=== PATIENT | female | born 1995 | race Caucasian/White ===

== ENCOUNTER 2017-07-26 18:01 | Emergency (ER) | payer OTHER, SELFPAY ==
[2017-07-26 18:18] LABS: Glucose, Urine (Dipstick) Negative (Negative); Ketone, Urine Trace mg/dL (Negative)
[2017-07-26 18:20] LABS: Hyaline Casts/LPF 0-3 HYALINE CAST LPF (0-3 Hyaline); Squamous Epithelial 0-3 HPF (0-3)
[2017-07-26 18:22] LABS: Nitrite Unable to Interpret (Negative)
[2017-07-26 18:23] LABS: Bilirubin Unable to Interpret (Negative); Blood, Urine Moderate (Negative)
[2017-07-26 18:26] LABS: Protein, Urine (Dipstick) 30 mg/dL (Neg-Trace)
[2017-07-26 18:28] LABS: Bacteria/HPF 2+ HPF (None Seen); RBC/HPF 21-50 HPF (0-3); Yeast-All Forms None Seen HPF (None Seen)
== END 2017-07-26 19:10 | disposition home or self-care (01) ==
LOC: ERS 18:01
DX: N39.0 Urinary tract infection, site not specified (principal); J45.909 Unspecified asthma, uncomplicated; F32.9 Major depressive disorder, single episode, unspecified; F41.9 Anxiety disorder, unspecified
CPT/HCPCS: 81003; 81015; 81025; 87077; 87086; 87186; 99283

== ENCOUNTER 2017-08-01 12:43 | Emergency (ER) | payer OTHER | END 2017-08-01 13:38 | disposition home or self-care (01) | LOC: ERS 12:43 | DX: N39.0 Urinary tract infection, site not specified (principal); J45.909 Unspecified asthma, uncomplicated; F32.9 Major depressive disorder, single episode, unspecified; F41.9 Anxiety disorder, unspecified; Z79.899 Other long term (current) drug therapy | CPT/HCPCS: 99283 ==

== ENCOUNTER 2017-08-20 10:03 | Emergency (ER) | payer OTHER ==
[2017-08-20 10:39] LABS: #Eosinphils 0.1 thou/uL (0.0-0.7); #Lymphocytes 2.1 thou/uL (1.20-3.40); #Monocytes 0.5 thou/uL (0.11-0.59); #Neutrophils 5.7 thou/uL (1.40-6.50); %Basophils 0.3 % (0.0-1.0); %Eosinophils 1.3 % (0.0-10.0); %Monocytes 5.4 % (0.0-10.0); Hematocrit 40.7 % (36.0-47.0); Mean Platelet Volume 8.4 fL (7.4-10.4); Red Blood Cell (RBC) Count 4.33 mill/uL (4.20-5.40); White Blood Cell (WBC) Count 8.4 thou/uL (4.8-10.8)
[2017-08-20 10:43] LABS: Bilirubin Negative (Negative); Blood, Urine Large (Negative); Glucose, Urine (Dipstick) Negative (Negative); Ketone, Urine Negative (Negative); Nitrite Negative (Negative); Protein, Urine (Dipstick) > or equal to 300 mg/dL (Neg-Trace); Urobilinogen 0.2 mg/dL (0.2-1.0)
[2017-08-20 10:48] LABS: RBC/HPF GREATER THAN 50-TNTC HPF (0-3)
[2017-08-20 10:56] LABS: Bacteria/HPF 3+ HPF (None Seen); Hyaline Casts/LPF NONE SEEN LPF (0-3 Hyaline); Renal Epithelial 0-3 HPF (0-3); Squamous Epithelial 0-3 HPF (0-3); Yeast-All Forms 2+ HPF (None Seen)
[2017-08-20 11:04] LABS: ALT (SGPT) 8 U/L (8-55); AST (SGOT) 11 U/L (5-34); Alkaline Phosphatase 49 U/L (40-150); Anion Gap 12 mmol/L (10-20); BUN (Urea Nitrogen) 13 mg/dL (7.0-18.7); Bilirubin, Total 0.6 mg/dL (0.2-1.2); Calc. Creatinine Clearance 0 mL/min (70-130); Calcium 9.7 mg/dL (7.8-10.44); Carbon Dioxide 22 mmol/L (22-29); Chloride 110 mmol/L (98-107); Estimated GFR-MDRD 80; Globulin 2.8 g/dL (2.4-3.5); Protein, Total 7.6 g/dL (6.0-8.3)
== END 2017-08-20 13:40 | disposition home or self-care (01) ==
LOC: ERS 10:03
DX: N39.0 Urinary tract infection, site not specified (principal)
CPT/HCPCS: 36415; 80053; 81003; 81015; 81025; 82550; 85025; 87040; 87086; 87480; 87491; 87510; 87591; 87660; 99283

== ENCOUNTER 2017-10-16 08:42 | Emergency (ER) | payer OTHER ==
[2017-10-16] MEDS ORDERED: Ondansetron HCl/PF 4 MG/2 ML Vial ONE (09:27)
[2017-10-16 09:51] LABS: #Eosinphils 0.1 thou/uL (0.0-0.7); #Lymphocytes 0.7 thou/uL (1.20-3.40); #Monocytes 0.4 thou/uL (0.11-0.59); #Neutrophils 4.6 thou/uL (1.40-6.50); %Basophils 0.2 % (0.0-1.0); %Eosinophils 0.9 % (0.0-10.0); %Lymphocytes 12.4 % (21.0-51.0); %Monocytes 6.6 % (0.0-10.0); Hemoglobin 12.9 g/dL (12.0-16.0); Mean Corpuscular Volume 93.9 fl (81.0-99.0); Platelet Count 180 thou/uL (130-400); Red Blood Cell (RBC) Count 4.14 mill/uL (4.20-5.40); White Blood Cell (WBC) Count 5.8 thou/uL (4.8-10.8)
[2017-10-16 10:02] LABS: BHCG - Serum Negative (NEGATIVE); Pregs Control Background? CLEAR/WHITE (CLR/WHITE); Pregs Control Bar Appear? YES (CONTROL BAR)
[2017-10-16 10:14] LABS: ALT (SGPT) 11 U/L (8-55); AST (SGOT) 12 U/L (5-34); Albumin 4.7 g/dL (3.5-5.0); Alkaline Phosphatase 57 U/L (40-150); Anion Gap 11 mmol/L (10-20); BUN (Urea Nitrogen) 8 mg/dL (7.0-18.7); Bilirubin, Total 0.4 mg/dL (0.2-1.2); Calc. Creatinine Clearance 0 mL/min (70-130); Calcium 9.1 mg/dL (7.8-10.44); Carbon Dioxide 24 mmol/L (22-29); Chloride 105 mmol/L (98-107); Estimated GFR-MDRD 89; Globulin 2.8 g/dL (2.4-3.5); Glucose 97 mg/dL (70-105); Lipase 8 U/L (8-78); Potassium 3.5 mmol/L (3.5-5.1); Protein, Total 7.5 g/dL (6.0-8.3); Sodium 136 mmol/L (136-145)
[2017-10-16 10:42] LABS: Bilirubin Negative (Negative); Blood, Urine Negative (Negative); Clarity CLEAR (Clear); Glucose, Urine (Dipstick) Negative (Negative); Leukocyte Negative (Negative); Nitrite Negative (Negative); Protein, Urine (Dipstick) Negative (Neg-Trace); Specific Gravity, Urine 1.016 (1.002-1.036); Urobilinogen 0.2 mg/dL (0.2-1.0)
[2017-10-16] MEDS ORDERED: Ketorolac Tromethamine 30 MG/ML VIAL ONE (10:47)
--- NOTE | 2017-10-16 10:51 | RAD ---
CHEST 1 VIEW AND ABDOMEN 2 VIEWS: Date: 10/16/17 HISTORY: Abdominal pain, cough, fever, chest pain, and vomiting. FINDINGS/IMPRESSION: The heart size is normal. The lungs are clear. No free air or differential fluid levels are seen. The bowel gas pattern is unremarkable. No suspicious calcifications are identified. POS: [facility]
== END 2017-10-16 11:14 | disposition home or self-care (01) ==
LOC: ERS 08:42
DX: J11.1 Influenza due to unidentified influenza virus with other respiratory manifestations (principal); J45.909 Unspecified asthma, uncomplicated; F41.9 Anxiety disorder, unspecified; F32.9 Major depressive disorder, single episode, unspecified; F17.200 Nicotine dependence, unspecified, uncomplicated
CPT/HCPCS: 74022; 80053; 81003; 83605; 83690; 84703; 85025; 96361; 96374; 96375; J1885; J2405

== ENCOUNTER 2017-11-07 14:57 | Emergency (ER) | payer OTHER | END 2017-11-07 17:11 | disposition home or self-care (01) | LOC: ERS 14:57 | DX: T74.11XA Adult physical abuse, confirmed, initial encounter (principal); F41.0 Panic disorder [episodic paroxysmal anxiety]; R06.4 Hyperventilation; J45.909 Unspecified asthma, uncomplicated; F41.9 Anxiety disorder, unspecified; F32.9 Major depressive disorder, single episode, unspecified; F17.200 Nicotine dependence, unspecified, uncomplicated | CPT/HCPCS: 36415; 83880; 99406 ==

== ENCOUNTER 2018-03-06 07:22 | Emergency (ER) | payer OTHER ==
[2018-03-06] MEDS ORDERED: diphenhydrAMINE 50 MG/ML VIAL ONE (08:01)
[2018-03-06] MEDS ORDERED: Dicyclomine 20 MG TAB ONE (08:01)
[2018-03-06] MEDS ORDERED: Metoclopramide HCl 10 MG/2 ML VIAL ONE (08:01)
[2018-03-06 08:11] LABS: #Eosinphils 0.1 thou/uL (0.0-0.7); #Monocytes 0.3 thou/uL (0.11-0.59); #Neutrophils 2.6 thou/uL (1.40-6.50); %Basophils 0.3 % (0.0-1.0); %Eosinophils 3.1 % (0.0-10.0); %Lymphocytes 25.6 % (21.0-51.0); %Monocytes 7.1 % (0.0-10.0); %Neutrophils 63.9 % (42.0-75.0); Hemoglobin 13.5 g/dL (12.0-16.0); Mean Corpuscular HGB CONC 33.1 g/dL (32.0-36.0); Mean Corpuscular Hemoglobin 30.6 pg (27.0-31.0); Mean Corpuscular Volume 92.3 fL (78.0-98.0); Mean Platelet Volume 8.1 fL (7.4-10.4); Platelet Count 195 thou/uL (130-400); RBC Distribution Width 11.9 % (11.5-14.5); White Blood Cell (WBC) Count 4.1 thou/uL (4.8-10.8)
[2018-03-06 08:36] LABS: ALT (SGPT) 7 U/L (8-55); AST (SGOT) 13 U/L (5-34); Albumin 4.5 g/dL (3.5-5.0); Alkaline Phosphatase 53 U/L (40-150); Anion Gap 11 mmol/L (10-20); BUN (Urea Nitrogen) 12 mg/dL (7.0-18.7); Calc. Creatinine Clearance 0 mL/min (70-130); Carbon Dioxide 23 mmol/L (22-29); Chloride 107 mmol/L (98-107); Estimated GFR-MDRD Greater than 90; Globulin 2.6 g/dL (2.4-3.5); Glucose 93 mg/dL (70-105); Potassium 3.8 mmol/L (3.5-5.1); Protein, Total 7.1 g/dL (6.0-8.3); Sodium 137 mmol/L (136-145)
[2018-03-06 08:40] LABS: Bilirubin Negative (Negative); Blood, Urine Negative (Negative); Clarity CLEAR (Clear); Glucose, Urine (Dipstick) Negative (Negative); Leukocyte Negative (Negative); Nitrite Negative (Negative); Protein, Urine (Dipstick) Negative (Neg-Trace); Specific Gravity, Urine 1.026 (1.002-1.036); Urobilinogen 0.2 mg/dL (0.2-1.0)
[2018-03-06 08:41] LABS: Pregnancy Test - Urine (BHCG) Negative (Negative); Pregu Control Background? CLEAR/WHITE (CLR/WHITE); Pregu Control Bar Appear? YES (CONTROL BAR); Specific Gravity 1.026 (1.002-1.036)
== END 2018-03-06 09:53 | disposition home or self-care (01) ==
LOC: ERS 07:22
DX: R11.2 Nausea with vomiting, unspecified (principal); J45.909 Unspecified asthma, uncomplicated; F41.9 Anxiety disorder, unspecified; F32.9 Major depressive disorder, single episode, unspecified
CPT/HCPCS: 36415; 80053; 81003; 81025; 85025; 87086; 96365; 96375; J1200; J2765

== ENCOUNTER 2018-08-03 20:45 | Emergency (ER) | payer OTHER | END 2018-08-03 21:24 | disposition home or self-care (01) | LOC: ERS 20:45 | DX: J02.0 Streptococcal pharyngitis (principal); F41.9 Anxiety disorder, unspecified; F32.9 Major depressive disorder, single episode, unspecified; F17.200 Nicotine dependence, unspecified, uncomplicated; J45.909 Unspecified asthma, uncomplicated | CPT/HCPCS: 87430; 99283 ==

== ENCOUNTER 2019-03-18 08:51 | Emergency (ER) | payer SELFPAY ==
[2019-03-18 09:26] LABS: #Eosinphils 0.1 thou/uL (0.0-0.7); #Lymphocytes 1.6 thou/uL (1.20-3.40); #Monocytes 0.6 thou/uL (0.11-0.59); #Neutrophils 2.5 thou/uL (1.40-6.50); %Basophils 0.3 % (0.0-1.0); %Eosinophils 1.8 % (0.0-10.0); %Lymphocytes 33.4 % (21.0-51.0); %Monocytes 11.4 % (0.0-10.0); Hemoglobin 11.7 g/dL (12.0-16.0); Mean Corpuscular HGB CONC 34.3 g/dL (32.0-36.0); Mean Corpuscular Hemoglobin 31.7 pg (27.0-31.0); Mean Corpuscular Volume 92.6 fL (78.0-98.0); Mean Platelet Volume 8.3 fL (7.4-10.4); Platelet Count 193 thou/uL (130-400); RBC Distribution Width 11.2 % (11.5-14.5); Red Blood Cell (RBC) Count 3.69 mill/uL (4.20-5.40); White Blood Cell (WBC) Count 4.8 thou/uL (4.8-10.8)
[2019-03-18 09:48] LABS: Bilirubin Negative (Negative); Blood, Urine 2+ (Negative); Clarity Clear (Clear); Glucose, Urine (Dipstick) Normal (Negative); Leukocyte Negative Leu/uL (Negative); Nitrite Negative (Negative); Protein, Urine (Dipstick) 20 mg/dL (Neg-Trace); RBC/HPF 0-3 HPF (0-3); Squamous Epithelial 0-3 HPF (0-3); Urobilinogen Normal mg/dL (Less than 2)
[2019-03-18 09:57] LABS: Bacteria/HPF 1+ HPF (None Seen)
--- NOTE | 2019-03-18 11:34 | ULT ---
PELVIC ULTRASOUND: Date: 03/18/19 HISTORY: Patient is and is having vaginal bleeding. FINDINGS: Real-time imaging of the pelvis was obtained transabdominally. This shows a somewhat retroverted uter us. A single viable intrauterine is identified. heart rate is 143 beats/minute. There appears to be a small subchorionic bleed measuring in the 1.0 cm range along the margin of the sac. Gestational sac measurement is 2.2 cm, corresponding to 7 weeks/1 day. [place]-rump length measurement is 1.3 cm, corresponding to 7 weeks/4 days The right and left ovaries are somewhat difficult to visualize, but appear unremarkable. IMPRESSION: 1. Single viable intrauterine . Measurements corresponding to a gestational age of 7 weeks/ 3 days. Estimated date of delivery is 11/01/2019. 2. Hypoechoic area along the inferior margin of the gestational sac, which would suggest a small sub chorionic bleed. POS: [facility]
== END 2019-03-18 11:49 | disposition home or self-care (01) ==
LOC: ERS 08:51
DX: O20.0 Threatened abortion (principal); O99.511 Diseases of the respiratory system complicating pregnancy, first trimester; J45.909 Unspecified asthma, uncomplicated; O99.341 Other mental disorders complicating pregnancy, first trimester; F43.10 Post-traumatic stress disorder, unspecified; O99.331 Smoking (tobacco) complicating pregnancy, first trimester; F17.210 Nicotine dependence, cigarettes, uncomplicated; Z3A.01 Less than 8 weeks gestation of pregnancy
CPT/HCPCS: 36415; 76856; 81003; 81015; 84702; 85025; 86900; 86901; 93976

== ENCOUNTER 2019-04-21 13:26 | Emergency (ER) | payer MEDICAID | END 2019-04-21 15:10 | disposition home or self-care (01) | LOC: ERS 13:26 | DX: O9A.211 Injury, poisoning and certain other consequences of external causes complicating pregnancy, first trimester (principal); S51.851A Open bite of right forearm, initial encounter; O99.511 Diseases of the respiratory system complicating pregnancy, first trimester; J45.909 Unspecified asthma, uncomplicated; O99.342 Other mental disorders complicating pregnancy, second trimester; F41.9 Anxiety disorder, unspecified; F43.10 Post-traumatic stress disorder, unspecified; F32.9 Major depressive disorder, single episode, unspecified; Z3A.17 17 weeks gestation of pregnancy; W55.01XA Bitten by cat, initial encounter | CPT/HCPCS: 99283 ==

== ENCOUNTER 2019-08-15 13:04 | Day surgery (SDC) | payer MEDICAID, OTHER ==
[2019-08-15 13:50] VITALS: BMI 18.3
[2019-08-15 14:03] VITALS: BP 107/69; TEMP 98.6
--- NOTE | 2019-08-15 14:45 | PDOC.FPROB ---
FMR OB H&P: HPI - History of Present Illness Chief Complaint: pelvic pain Indentification: at 29.1 weeks History of Present Illness: at 29.1 weeks here for cold like sxs-runny nose, cough and pelvic pain for past few days, worse when baby is moving. Denies frequency, dysuria. No fevers or chills. Rhinorrhea, cough and sinus congestion. Has not tried anything OTC. Denies VC/denies new VD/No LOF or leaking/Endorses FM Primary Care Physician: None, previously had seen Dr. Cervantes FMR OB H&P: Current - Care : 2 Para: 1 Gestational age: 29.1 - OB Labs Blood type: unknown RH: unknown Antibody Screen: unknown HIV: unknown RPR: unknown HepBsAg: unknown Quad screen: unknown Urine drug screen: not done Gonorrhea: unknown Chlamydia: unknown GBS: unknown FMR OB H&P: History - Past Medical History PMH: Endometritis, asthma, gastritis - OB History OB History: 1 term - AGENT History AGENT History: Endometriosis - Surgical History Sx History: Denies - Social History Social History: Denies TAD - Family History Family History: Non contributory FMR OB H&P: Medications - Current Allergies/Adverse Reactions: Allergies Allergy/AdvReac Type Severity Reaction Status Date / Time No Known Allergies Allergy Verified 06/17/16 22:15 FMR OB H&P: ROS - Review of Systems General: denies: fever/chills, weight/appetite/sleep changes Eyes: denies: vision changes, double vision ENT: reports: nasal congestion, rhinorrhea. denies: toothache, sore throat Cardiovascular: denies: chest pain, palpitation, edema Gastrointestinal: reports: abdominal pain. denies: indigestion, nausea, vomiting, diarrhea Genitourinary (Female): denies: dysuria, polyuria, vaginal discharge, vaginal pain, vaginal bleeding, contractions, vaginal pressure Musculoskeletal: denies: pain, stiffness, tenderness Neurologic: denies: syncope, seizures, weakness Integumentary: denies: itching, rash, lesions Endocrine: denies: cold intolerance, heat intolerance Hematologic/Lymphatic: denies: prolonged or excessive bleeding Psychological: denies: depression, anxiety FMR OB H&P: Vital Signs - Maternal Vital signs: Vital Signs - First Documented Temp Pulse Resp BP 98.6 F 110 H 18 107/69 08/15/19 13:49 08/15/19 13:49 08/15/19 13:49 08/15/19 13:49 - Heart Tones [place] contractions every: reactive and reassuring FMR OB H&P: Physical Exam - Physical Exam General: NAD, awake, alert and oriented HEENT: normocephalic and atraumatic, EOMI, MMM, no scleral icterus Neck: supple, FROM Heart: RRR, normal S1/S2, no murmurs/rubs/gallops General: CTAB, no respiratory distress, good air movement Abdomen: soft, gravid Musculoskeletal: normal gait and station, pulses present Lymphatic: no unusual bruising or bleeding, no purpura Psychiatric: intact recent and remote memory, good judgement and insight FMR OB H&P: A/P - Problem List (1) Status: Acute Disposition: 1. sIUP -FHT: reactive & reassuring, no CTX -No indication for vaginal exam at this time-no signs of labor 2. Suprapubic pain -History consistent w/ round ligament pain but will obtain UA to r/o UTI 3. Poor PNC -Plans on seeing [facility] provider this week 4. URI -Recommended conservative treatment -No systemic symptoms Dispo: Pending UA Discussed with Dr. Steele Discussion: Date/Time: 08/15/19 1178 This H&P was discussed with [] and [] who agree with the above documentation and plan. Addendum - Attending - Attending Attestation Date/Time: 08/15/19 5093 I personally evaluated the patient and discussed the management with Dr. Otto. I agree with the History, Examination, Assessment and Plan documented above.
[2019-08-15 15:41] LABS: Bacteria/HPF Rare-Few HPF (None Seen); Bilirubin Negative (Negative); Blood, Urine Negative (Negative); Clarity Clear (Clear); Glucose, Urine (Dipstick) Normal (Negative); Leukocyte Negative Leu/uL (Negative); Nitrite Negative (Negative); Protein, Urine (Dipstick) Negative (Neg-Trace); RBC/HPF 0-3 HPF (0-3); Squamous Epithelial 0-3 HPF (0-3); Urobilinogen Normal mg/dL (Less than 2); WBC/HPF 0-3 HPF (0-3)
[2019-08-15 15:42] LABS: Urine Culture Reflex No No
--- NOTE | 2019-08-15 16:05 | PDOC.BPN ---
- Brief Progress Note Discussed results of UA which were inconsistent signs of infection FHT reactive & reassuring No reported pain during this triage stay Discussed likely round ligament pain, which is c/w history Plans to follow up tomorrow with [facility] provider All questions answered
[2019-08-16] MEDS ORDERED: FLU VACC QS2019-20(6MOS UP)/PF 60 MCG/0.5 ML SYRINGE IM ONE (14:00)
== END 2019-08-15 16:05 | disposition home or self-care (01) ==
LOC: L&D/OP 13:04
PROVIDERS: ATTEND Obstetrics & Gynecology
DX: O99.89 Other specified diseases and conditions complicating pregnancy, childbirth and the puerperium (principal); R10.2 Pelvic and perineal pain; O99.513 Diseases of the respiratory system complicating pregnancy, third trimester; J00 Acute nasopharyngitis [common cold]; Z3A.29 29 weeks gestation of pregnancy

== ENCOUNTER 2021-01-23 15:51 | Emergency (ER) | payer OTHER ==
[~2021-01-23 15:51] MED LIST: Iopamidol-370 76% 500 ML 1 ML ONE
[2021-01-23 17:05] LABS: #Eosinphils 0.1 thou/uL (0.0-0.7); #Lymphocytes 1.4 thou/uL (1.20-3.40); #Monocytes 0.8 thou/uL (0.11-0.59); #Neutrophils 9.9 thou/uL (1.40-6.50); %Basophils 0.2 % (0.0-1.0); %Eosinophils 0.5 % (0.0-10.0); %Lymphocytes 11.6 % (21.0-51.0); %Monocytes 6.8 % (0.0-10.0); %Neutrophils 80.9 % (42.0-75.0); Mean Corpuscular HGB CONC 32.6 g/dL (32.0-36.0); Mean Corpuscular Hemoglobin 30.9 pg (27.0-31.0); Mean Corpuscular Volume 94.9 fL (78.0-98.0); Mean Platelet Volume 8.5 fL (7.4-10.4); Platelet Count 232 thou/uL (130-400); RBC Distribution Width 11.7 % (11.5-14.5); Red Blood Cell (RBC) Count 3.89 mill/uL (4.20-5.40); White Blood Cell (WBC) Count 12.2 thou/uL (4.8-10.8)
[2021-01-23] MEDS ORDERED: Lorazepam 2 MG/ML VIAL ONE (17:14)
[2021-01-23] MEDS ORDERED: Fentanyl 100 MCG/2 ML VIAL ONE ×2 (17:30→19:40)
[2021-01-23 17:50] LABS: ALT (SGPT) 21 U/L (8-55); AST (SGOT) 27 U/L (5-34); Albumin 4.3 g/dL (3.5-5.0); Alkaline Phosphatase 49 U/L (40-110); Anion Gap 13 mmol/L (10-20); BUN (Urea Nitrogen) 12 mg/dL (7.0-18.7); Bilirubin, Total 0.3 mg/dL (0.2-1.2); Calc. Creatinine Clearance 0 mL/min (70-130); Carbon Dioxide 24 mmol/L (22-29); Chloride 108 mmol/L (98-107); Globulin 2.6 g/dL (2.4-3.5); Glucose 111 mg/dL (70-105); Potassium 3.6 mmol/L (3.5-5.1); Protein, Total 6.9 g/dL (6.0-8.3); Sodium 141 mmol/L (136-145)
[2021-01-23 17:56] LABS: BHCG - Serum Negative (NEGATIVE); Pregs Control Background? CLEAR/WHITE (CLR/WHITE); Pregs Control Bar Appear? YES (CONTROL BAR)
[2021-01-23] MEDS ORDERED: Ketorolac Tromethamine 30 MG/ML VIAL ONE (19:40)
== END 2021-01-23 20:05 | disposition home or self-care (01) ==
LOC: ERS 15:51
DX: S42.022A Displaced fracture of shaft of left clavicle, initial encounter for closed fracture (principal); S42.115A Nondisplaced fracture of body of scapula, left shoulder, initial encounter for closed fracture; J93.9 Pneumothorax, unspecified; J45.909 Unspecified asthma, uncomplicated; F17.200 Nicotine dependence, unspecified, uncomplicated; V89.2XXA Person injured in unspecified motor-vehicle accident, traffic, initial encounter
CPT/HCPCS: 36415; 70450; 71045; 71260; 72125; 74177; 80053; 84484; 84703; 85025; 93005; 96374; 96375; 96376; J1885; J2060; J3010; Q9967